=== PATIENT | female | born 1965 | race Caucasian/White ===

== ENCOUNTER 2018-05-31 12:12 | Emergency (ER) | payer OTHER ==
[~2018-05-31] VITALS: Ht 167.6 cm; Wt 74.8 kg
[2018-05-31] MEDS ORDERED: VITAMIN K100 MCG (13:01)
[2018-05-31] MEDS ORDERED: CALCIUM500 M2 (13:02)
== END 2018-05-31 18:57 | disposition home or self-care (01) ==
LOC: ER 12:12
DX: M62.838 Other muscle spasm (principal)